=== PATIENT | male | born 1980 | race Two or more races ===

== ENCOUNTER 2025-04-16 15:01 | Emergency (ER) | payer MEDICAID, SELFPAY ==
[2025-04-16 15:06] VITALS: BP 142/79; PULSE 104; RESP 18; TEMP 37; O2SAT 97; BMI 34.0
--- NOTE | 2025-04-16 15:12 | EDNOTE_ITS ---
<Statement entered by Kristina St MD - 04/16/25 17:54> As co-signing physician, I was present and available for consult prn. I concur with the plan and care as documented by the midlevel provider. ED Dental RME/HPI General Chief complaint: Dental/Oral/Throat Stated complaint: R SIDE DENTAL PAIN Time Seen by Provider: 04/16/25 15:10 Arrival date/time: 04/16/25 15:01 44-year-old male presents to the emergency department today with complaint of gingival swelling patient for symptom onset 2 days ago Limitations: no limitations Related Data Previous Rx's ?Medication ?Instructions ?Recorded clindamycin HCl 150 mg capsule 450 mg (3 x 150 mg) PO TID 7 days 04/16/25 #63 caps hydrocodone 5 mg-acetaminophen 325 1 tab PO BID PRN pa in #6 tabs 04/16/25 mg tablet ibuprofen 800 mg tablet 800 mg PO TID PRN pain #30 t abs 04/16/25 Allergies Allergy/AdvReac Type Severity Reaction Status Date / Time No Known Allergies Allergy Verified 04/16/25 15:01 Review of Systems Review of Systems Systems Reviewed: All systems reviewed, normal except as documented Constitutional Constitutional: Reports system reviewed and no additional complaints, except as documented, Denies fever(s) and Denies headache(s) Eyes Eyes: Reports system reviewed and no additional complaints, except as documented and Denies blurry vision ENT Ears, Nose, Mouth, and Throat: Reports system reviewed and no additional complaints, except as documented, Denies headache(s), Denies nasal congestion, Denies nasal discharge and Reports other (Gingival swelling) Cardiovascular Cardiovascular: Reports system reviewed and no additional complaints, except as documented, Denies chest pain and Denies dyspnea Respiratory Respiratory: Reports system reviewed and no additional complaints, except as documented, Denies chest congestion, Denies cough and Denies dyspnea Gastrointestinal Gastrointestinal: Reports system reviewed and no additional complaints, except as documented and Denies abdominal pain Integumentary/Breasts Skin/Breast: Reports system reviewed and no additional complaints, except as documented and Denies rash Neurologic Neurologic: Reports system reviewed and no additional complaints, except as documented, Reports as per HPI and Denies headache(s) Past Medical History Past Medical History NEUROLOGIC: Negative Neurological Disorders or Seizures CARDIAC: Negative Cardiac Disorders or Congestive Heart Failure RESPIRATORY: Negative Chronic Obstructive Pulmonary Disease (COPD) GASTROINTESTINAL: Negative Gastrointestinal Disorders GENITOURINARY: Negative Genitourinary Disorders or Renal Disease MUSCULOSKELETAL: Negative Musculoskeletal Disorders ENDOCRINE: Negative Endocrine Disorders, Diabetes Mellitus Type 1 or Diabetes Mellitus Type 2 HEMATOLOGIC: Negative Blood Disorders OTHER HISTORY: Negative Autoimmune Disease, Blood Transfusions, Blood Transfusion Reaction or Anesthesia Reactions Family History FAMILY HISTORY: Negative Family Cardiac Disorders Surgical History SURGICAL: Negative Cardiac Surgery, Endocrine Surgery, Ear Surgery, Abdominal Surgery, Nephrectomy, Joint Replacement or Vasectomy Social History SMOKING STATUS: Current every day smoker ED Exam General Limitations: Present no limitations General appearance: Present alert and in no apparent distress Head Head exam: Present atraumatic Eye Eye exam: Present normal appearance, PERRL and EOMI ENT ENT exam: Present mucous membranes moist and other (Gingival swelling) Neck Neck exam: Present normal inspection, full ROM and trachea midline Chest Chest inspection: Present normal inspection and symmetric chest wall rise Respiratory Respiratory exam: Present normal lung sounds bilaterally Cardiovascular Cardiovascular exam: Present regular rate, normal rhythm and normal heart sounds Abdominal Exam Abdominal exam: Present soft and normal bowel sounds Extremities Exam Extremities exam: Present normal inspection and full ROM Back Exam Back exam: Present normal inspection and full ROM Neurological Exam Neurological exam: Present alert, oriented X3 and CN II-XII intact Psychiatric Psychiatric exam: Present normal affect and normal mood Skin Skin exam: Present warm, dry, intact and normal color Course Quality Measures none Orders Category Date Time Status HYDROcodone*/APAP 5/325 [[place] 5/325] Med 04/16/25 15:12 Discontinued 1 tab PO X1 ONE Lidocaine 1% 20 ml [Xylocaine 1% 20 ML] Med 04/16/25 15:12 Discontinued 2.1 ml INFL X1 ONE cefTRIAXone [Rocephin] Med 04/16/25 15:12 Discontinued 1,000 mg IM X1 ONE Vital Signs Vital signs: Vital Signs Temperature 98.6 F 04/16/25 15:06 Pulse Rate 104 H 04/16/25 15:06 Respiratory Rate 18 04/16/25 15:06 Blood Pressure 142/79 H 04/16/25 15:06 Pulse Oximetry (%) 97 04/16/25 15:06 Oxygen Delivery Method Room Air 04/16/25 15:06 O2 saturation 97% room air within normal limits Dental / Oral MDM Narrative MDM Narrative:: 44-year-old male presents to the emergency department today with complaint of gingival swelling patient for symptom onset 2 days ago On exam patient well-appearing patient does not appear ill or toxic no acute dis tress Exam patient has minimal facial swelling with gingival swelling consistent with dental/gingival abscess Patient be treated symptomatically should symptoms persist or worsen instructed return for reevaluation Patient data External records reviewed:: [facility] previous records Clinical information provided by:: patient Social determinants that could affect healthcare access:: none Patient has the following chronic illnesses:: None How is presenting disease/condition affected by chronic disease/condition?: no chronic disease Evaluation data The following diagnostics were reviewed and interpreted by me:: other (specify) (N/A) Lab and/or radiology exams considered but not ordered:: Considered not indicated Interpretation Summary: N/A Medications / Prescriptions Medications or Prescriptions considered but not ordered:: Given Medication administrations:: Medication Administration History Discontinued Medications Hydrocodone Bitart/Acetaminophen (Hydrocodone/Apap 5/325 Tablet) 1 tab PO X1 ONE Stop: 04/16/25 15:13 Last Admin: 04/16/25 15:43 Dose: 1 tab Documented By: DAVID Ceftriaxone Sodium (Ceftriaxone Sod Inj 1,000 Mg Vial) 1,000 mg IM X1 ONE Stop: 04/16/25 15:13 Last Admin: 04/16/25 15:43 Dose: 1,000 mg Documented By: DAVID Lidocaine HCl (Lidocaine Hcl 1% 20 Ml Vial) 2.1 ml INFL X1 ONE Stop: 04/16/25 15:13 Last Admin: 04/16/25 15:43 Dose: 2.1 ml Documented By: DAVID Given Consultations Consultation(s) initiated? (list below): No Diagnosis Dental Differential Diagnosis: gingival abscess, dental caries, toothache and dental abscess Most likely diagnosis given after review of the tests above:: Gingival swelling Admission Indicated Admission indicated?: not indicated Admission Request Was there a request for admission?: No Disposition Plan Disposition Plan: Discharge Discharge Attestation Discharge Attestation: The patient and all family members were given an opportunity to ask questions and understood the discharge instructions. Discharge instructions specifically effects, indications for sooner follow up or return to the emergency department, and the expected course of current diagnosis. Patient condition: Stable Discharge Plan Plan Patient Disposition: HOME (Self Care) Discharge Disposition comment: Stable Prescriptions/Referrals Prescriptions/Med Rec: New ibuprofen 800 mg tablet 800 mg PO TID PRN (Reason: pain) Qty: 30 0RF hydrocodone-acetaminophen 5-325 mg tablet 1 tab PO BID MDD 10 PRN (Reason: pain) Qty: 6 0RF clindamycin HCl 150 mg capsule 450 mg PO TID 7 Days Qty: 63 0RF Problem List Clinical Impression: Gingival abscess Patient/Caregiver Discharge Instructions Education Materials: Periodontal Disease Soft ... Additional Instructions: Please follow up with your primary care doctor in the next 24-48hrs for any worsening symptoms return here immediately Print Language: Kinyarwanda Stand Alone Forms: Jannette Award Info., Patient Portal Info Letter PA/CUP TRIMMING MACHINE OPERATOR Supervising Physician PA/CUP TRIMMING MACHINE OPERATOR Supervising Physician: Dr. St
[2025-04-16] MEDS: HYDROcodone/APAP 5/325 TABLET 1 TAB PO (15:43)
[2025-04-16] MEDS: LIDOCAINE HCL 1% 20 ML VIAL 2.1 ML INFL (15:43)
[2025-04-16] MEDS: cefTRIAXone SOD INJ 1,000 MG VIAL 1000 MG IM (15:43)
== END 2025-04-16 16:04 | disposition home or self-care (01) ==
LOC: SERX 16:05
PROVIDERS: Emergency Provider Nurse Practitioner Primary Care
DX: K05.219 Aggressive periodontitis, localized, unspecified severity (principal)
CPT/HCPCS: 96372; 99281; J0696; J3490; A9270